=== PATIENT | male | born 1975 | race Caucasian/White ===

== ENCOUNTER → 2016-11-07 | Outpatient (CLI) | payer OTHER ==
[~2016-11-07] MED LIST: Z.0.NO CURRENT MEDS
[2016-11-07 09:37] LABS: ANION GAP 7 MEQ/L (5-15); AST (GOT) 18 U/L (15-37); BICARBONATE 27.2 MEQ/L (21.0-32.0); BLOOD UREA NITROGEN 16 MG/DL (7-18); CHLORIDE 106 MEQ/L (98-107); GLOMERULAR FILTRATION RATE 64 ML/MIN (>89); GLUCOSE,FASTING 80 MG/DL (74-99); POTASSIUM 4.1 MEQ/L (3.5-5.1); SODIUM (NA) 140 MEQ/L (136-145)
[2016-11-07 09:48] LABS: ALKALINE PHOSPHATASE 68 U/L (45-117); ALT (GPT) 23 U/L (12-78); FREE T4 1.11 NG/DL (0.76-1.46); HDL CHOLESTEROL 49.1 MG/DL (40.0-60.0); LDL CHOLESTEROL 127 MG/DL (0-99); TOTAL BILIRUBIN ADULT 0.9 MG/DL (0.2-1.0)
[2016-11-07 09:54] LABS: HEMATOCRIT 44.5 % (39.0-51.0); MEAN CELL VOLUME 90.3 FL (80.0-100.0); MEAN CORPUSCULAR HEMOGLOBIN 31.3 PG (27.0-34.0); MEAN CORPUSCULAR HGB CONC 34.6 % (32.0-36.0); PLATELET COUNT 199 TH/MM3 (150-450); RED BLOOD COUNT 4.93 MIL/MM3 (4.50-5.90); RED CELL DISTRIBUTION WIDTH 13.1 % (11.6-17.2); REVIEW FLAG FINAL; WHITE BLOOD COUNT 5.1 TH/MM3 (4.0-11.0)
== END ==
LOC: CLAB 08:38
PROVIDERS: ATTEND Internal Medicine Endocrinology, Diabetes & Metabolism
DX: R53.83 Other fatigue (principal)
CPT/HCPCS: 36415; 80053; 80061; 84153; 84402; 84403; 84410; 84439; 84443; 85027

== ENCOUNTER → 2017-06-24 | Outpatient (CLI) | payer OTHER ==
[2017-06-24 07:47] LABS: HEMATOCRIT 46.7 % (39.0-51.0); HEMOGLOBIN 16.8 GM/DL (13.0-17.0); MEAN CELL VOLUME 89.4 FL (80.0-100.0); MEAN CORPUSCULAR HEMOGLOBIN 32.2 PG (27.0-34.0); MEAN PLATELET VOLUME 7.4 FL (7.0-11.0); PLATELET COUNT 207 TH/MM3 (150-450); RED BLOOD COUNT 5.22 MIL/MM3 (4.50-5.90); RED CELL DISTRIBUTION WIDTH 13.2 % (11.6-17.2); WHITE BLOOD COUNT 5.3 TH/MM3 (4.0-11.0)
[2017-06-24 07:48] LABS: MEAN CORPUSCULAR HGB CONC 36.1 % (32.0-36.0)
[2017-06-24 08:07] LABS: ALBUMIN 4.3 GM/DL (3.4-5.0); AST (GOT) 25 U/L (15-37); BICARBONATE 26.1 MEQ/L (21.0-32.0); BLOOD UREA NITROGEN 22 MG/DL (7-18); CALCIUM 8.8 MG/DL (8.5-10.1); CHLORIDE 104 MEQ/L (98-107); CREATININE 1.38 MG/DL (0.60-1.30); GLOMERULAR FILTRATION RATE 56 ML/MIN (>89); GLUCOSE,FASTING 85 MG/DL (74-99); SODIUM (NA) 140 MEQ/L (136-145)
[2017-06-24 08:08] LABS: ALT (GPT) 32 U/L (12-78)
[2017-06-24 08:17] LABS: ALKALINE PHOSPHATASE 75 U/L (45-117); TOTAL BILIRUBIN ADULT 0.6 MG/DL (0.2-1.0); TOTAL PROTEIN 7.5 GM/DL (6.4-8.2)
== END ==
LOC: HCAV 07:09
PROVIDERS: ATTEND Internal Medicine Interventional Cardiology
DX: R55 Syncope and collapse (principal); R53.83 Other fatigue
CPT/HCPCS: 36415; 80053; 84443; 85027

== ENCOUNTER → 2017-06-25 | Outpatient (CLI) | payer OTHER ==
--- NOTE | 2017-06-26 15:04 | HM ---
Date Performed: 06/25/2017 Time Performed: 10:15:00 HOOKUP DATE: 06/25/17 10:15:00 AM Tue ANALYSIS START TIME: 06/25/2017 10:20:00 AM ANALYSIS END TIME: 06/26/2017 10:24:00 AM PATIENT AGE: 42 PATIENT HEIGHT PATIENT WEIGHT DRUG LIST PATIENT DIAGNOSIS: SYNCOPE/ WPW TEST NARRATIVE: The patient's average heart rate was 69 BPM. Heart rates greater than 120 B PM were noted < 1% of the time. Heart rates less than 50 BPM were noted 8% of the time. No pause s exceeding 2.0 seconds were noted. 16 ventricular ectopics, which represented < 1% of the total beat count, were noted. The highest ventricular ectopic frequency occurred from 02:00 AM to 03:00 AM Wed. During this time 4 VE(s) occurred. Ventricular ectopics were observed as 10 isolated beat(s) and as 2 run(s). 5 supraventricular ectopics, which represented < 1% of the total beat count, wer e noted. The highest supraventricular ectopic frequency occurred from 01:00 PM to 02:00 PM Tue. Dur ing this time 1 SVE(s) occurred. No episodes of ST depression (defined as -1.0 mm or more) were n oted in channel 1. No episodes of ST depression (defined as -1.0 mm or more) were noted in channel 2 . No episodes of ST depression (defined as -1.0 mm or more) were noted in channel 3. THE PATIENT REP ORTED NO SYMPTOMS DURING THE COURSE OF THE MONITOR. TEST INTERPRETATION: NORMAL Sinus rhythm RARE SINUS TACHYCARDIA RARE PVCs IN SINGLET AND ONE TRIPLET RARE PACs Signed by : Bandar Romeo
== END ==
LOC: HCAV 10:17
PROVIDERS: ATTEND Internal Medicine Interventional Cardiology
DX: R55 Syncope and collapse (principal); I45.6 Pre-excitation syndrome
CPT/HCPCS: 93225; 93226